=== PATIENT | female | born 1935 | race Caucasian/White ===

== ENCOUNTER 2018-09-02 10:45 | Emergency (ER) | payer MEDICARE, OTHER ==
[2018-09-02] MEDS: HYDROmorphONE 1 MG/ML SYG IV (11:42)
[2018-09-02] MEDS: ONDANSETRON 4 MG INJ IV (11:42)
[2018-09-02] MEDS: METHYLPREDNISOLONE 125 MG INJ IV (11:42)
== END 2018-09-02 14:05 | disposition home or self-care (01) ==
LOC: E/R 10:45
DX: E11.621 Type 2 diabetes mellitus with foot ulcer (principal); L97.529 Non-pressure chronic ulcer of other part of left foot with unspecified severity; I25.2 Old myocardial infarction; E11.40 Type 2 diabetes mellitus with diabetic neuropathy, unspecified; Z79.4 Long term (current) use of insulin
CPT/HCPCS: 96374; 96375; 99284-25

== ENCOUNTER 2018-10-24 06:23 | Day surgery (SDC) | payer MEDICARE, OTHER ==
[2018-10-24] MEDS: LACTATED RINGER'S 1,000 ML IV (07:15)
[2018-10-24] MEDS: CEFAZOLIN 1 GM/50 ML (PMX) 50 ML IVPB (07:30)
[2018-10-24] MEDS ORDERED: FENTAnyl 50 MCG/ML VIAL (07:50)
[2018-10-24] MEDS ORDERED: PROPOFOL 20 ML (07:50)
[2018-10-24] MEDS ORDERED: CEFAZOLIN 1 GM INJ (07:50)
[2018-10-24] MEDS: BUPIVACAINE 0.5% (SDV) 30 ML INJ (08:19)
[2018-10-24] MEDS ORDERED: ONDANSETRON 4 MG INJ IV (08:30)
[2018-10-24] MEDS ORDERED: OXYCODONE/ACETAMINOPHEN (5/325) TAB PO (08:30)
[2018-10-24] MEDS ORDERED: FENTAnyl 50 MCG/ML VIAL IV ×3 (08:30)
[2018-10-24] MEDS ORDERED: HYDROCODONE/APAP (10/325) TAB PO (09:00)
[2018-10-24] MEDS ORDERED: ONDANSETRON (ODT) 4 MG TAB ODT (09:00)
[2018-10-24] MEDS: OXYCODONE/ACETAMINOPHEN (5/325) TAB PO (09:05)
== END 2018-10-24 10:40 | disposition home or self-care (01) ==
LOC: SDS 06:23
DX: M86.8X7 Other osteomyelitis, ankle and foot (principal); I10 Essential (primary) hypertension; E11.9 Type 2 diabetes mellitus without complications; E03.9 Hypothyroidism, unspecified; I25.10 Atherosclerotic heart disease of native coronary artery without angina pectoris; Z79.01 Long term (current) use of anticoagulants; Z79.02 Long term (current) use of antithrombotics/antiplatelets; Z79.4 Long term (current) use of insulin
CPT/HCPCS: 11044; 73630-LT; 82962; 88304; 88311